=== PATIENT | female | born 1950 | race Caucasian/White ===

== ENCOUNTER 2022-11-29 00:51 | Observation (INO) | payer OTHER, MEDICAID ==
[2022-11-29 01:31] VITALS: BMI 43.4
[2022-11-29] MEDS ORDERED: Ondansetron ODT 4 MG TAB PO PRN (01:39)
[2022-11-29] MEDS ORDERED: Ondansetron PF 4 MG/2 ML Vial IVP PRN (01:39)
[2022-11-29] MEDS ORDERED: Senokot S 8.6-50 MG TAB PO PRN (01:39)
[2022-11-29] MEDS ORDERED: Acetaminophen 325 MG TAB PO SCH (02:45)
[2022-11-29 04:01] LABS: Anion Gap 14 mmol/L (10-20); BUN (Urea Nitrogen) 11 mg/dL (9.8-20.1); Calc. Creatinine Clearance 153 mL/min (70-130); Calcium 8.9 mg/dL (7.8-10.44); Carbon Dioxide 22 mmol/L (23-31); Chloride 110 mmol/L (98-107); Estimated GFR 94; Glucose 113 mg/dL (83-110); Magnesium 1.8 mg/dL (1.6-2.6); Potassium 3.5 mmol/L (3.5-5.1); Sodium 142 mmol/L (136-145)
[2022-11-29 04:18] LABS: HBSAg Index 0.14 S/CO (0-0.99); Hep B Surf Ag Non-Reactive S/CO (NonReactive); Thyroid Stimulating Hormone 2.1317 uIU/mL (0.35-4.94)
[2022-11-29 04:33] LABS: #Eosinphils 0.2 10x3/uL (0.0-0.5); #Monocytes 0.6 10x3/uL (0.0-1.1); #Neutrophils 3.2 10x3/uL (1.5-8.4); %Basophils 0.4 % (0.0-2.0); %Eosinophils 4.4 % (0.0-6.0); %Lymphocytes 18.8 % (18.0-47.0); Hemoglobin 12.9 g/dL (12.0-15.5); Mean Corpuscular HGB CONC 34.2 g/dL (32.0-36.0); Mean Corpuscular Volume 93.5 fl (81.6-98.3); Mean Platelet Volume 9.8 fl (7.4-10.4); Platelet Count 87 10x3/uL (150-450); RBC Distribution Width 13.9 % (11.5-14.5); Red Blood Cell (RBC) Count 4.03 10x6/uL (3.90-5.03)
[2022-11-29 04:46] LABS: Ferritin 139.73 ng/mL (10-291)
[2022-11-29 04:48] LABS: Platelet Morphology Comment Appears Decreased
[2022-11-29 04:52] LABS: SARS-CoV-2 NAA Rapid Test Not Detected (NotDetected)
[2022-11-29] MEDS ORDERED: Diclofenac 1% 100 GM GEL TP SCH ×3 (05:45→13:00)
[2022-11-29] MEDS ORDERED: Furosemide 40 MG/4 ML VIAL SLOW IVP SCH (06:00)
[2022-11-29] MEDS ORDERED: Spironolactone 25 MG TAB PO SCH (08:00)
[2022-11-29] MEDS ORDERED: FLU VACC QS2022-23(65YR UP)/PF 240 MCG/0.7 ML SYRINGE IM ONE (08:30)
[2022-11-29] MEDS ORDERED: Losartan Potassium 50 MG TAB PO SCH (09:00)
[2022-11-29] MEDS ORDERED: Propranolol 10 MG TAB PO SCH (09:00)
[2022-11-29 12:32] VITALS: TEMP 97.9
[2022-11-29 14:10] LABS: Hemoglobin A1c 5.2 % (4.0-6.0)
[2022-11-29 15:06] LABS: Hep C IgG Ab Non-Reactive (NonReactive); Hep C Index 0.09 S/CO (0-0.79)
[2022-11-29 17:50] VITALS: BP 183/83
== END 2022-11-29 16:00 | disposition home or self-care (01) ==
LOC: CSHTELE 00:51 → INTOOBSV 00:51
PROVIDERS: ADMIT Family Medicine; ATTEND Internal Medicine
DX: R06.02 Shortness of breath (principal); E66.9 Obesity, unspecified; M19.90 Unspecified osteoarthritis, unspecified site; B02.9 Zoster without complications; K76.6 Portal hypertension; I16.0 Hypertensive urgency; I10 Essential (primary) hypertension; K74.69 Other cirrhosis of liver; I89.0 Lymphedema, not elsewhere classified; Z20.822 Contact with and (suspected) exposure to COVID-19; R22.40 Localized swelling, mass and lump, unspecified lower limb; D69.6 Thrombocytopenia, unspecified; B02.29 Other postherpetic nervous system involvement; Z88.0 Allergy status to penicillin; Z88.8 Allergy status to other drugs, medicaments and biological substances; Z87.891 Personal history of nicotine dependence; Z79.899 Other long term (current) drug therapy; Z68.41 Body mass index [BMI] 40.0-44.9, adult
CPT/HCPCS: 80048; 82728; 83036; 83735; 84443; 84484 ×2; 85025; 86803; 87340; 93005; 96374; G0378; U0002; 36415; 93010; J1940